=== PATIENT | female | born 1975 | race Caucasian/White ===

== ENCOUNTER 2016-06-03 16:45 | Outpatient (RCR) | payer OTHER | END 2016-06-16 | LOC: M PT 16:45 | PROVIDERS: ATTEND Podiatrist Foot & Ankle Surgery | DX: Z51.89 Encounter for other specified aftercare (principal); M72.2 Plantar fascial fibromatosis ==

== ENCOUNTER → 2016-07-13 | Outpatient (CLI) | payer OTHER ==
--- NOTE | 2016-07-13 13:23 | REP ---
PELVIC ULTRASOUND: Real-time sonographic evaluation of the pelvis performed utilizing transabdominal technique. Bladder measures 12.8 x 7.5 x 10.9 cm. The uterus measures 9.1 x 3.6 x 6.3 cm. Endometrial thickness 13 mm with no endometrial fluid collection. The right ovary measures 2.7 x 1.9 x 2.5 cm and left ovary 4.2 x 3.2 x 3.4 cm. Previously noted complex cyst of the left ovary appears to have resolved. A dominant follicle in the left ovary measures 2.3 cm in diameter. There is blood flow seen in each ovary with duplex Doppler evaluation, RI right ovary 0.62 and left ovary 0.45. No significant free fluid is seen. IMPRESSION: Previously noted complex cyst left ovary has resolved. Dominant follicle left ovary 2.3 cm in maximum diameter. Signed by Esvin Novak MD 07/13/2016 04:59 P
== END ==
LOC: M RAD 12:31
PROVIDERS: ATTEND Obstetrics & Gynecology
DX: R10.814 Left lower quadrant abdominal tenderness (principal); D39.12 Neoplasm of uncertain behavior of left ovary

== ENCOUNTER → 2016-08-01 | Outpatient (REF) | payer OTHER | LOC: M LAB REF 10:43 | PROVIDERS: ATTEND Physician Assistant | DX: J02.9 Acute pharyngitis, unspecified (principal) ==

== ENCOUNTER 2016-10-02 06:22 | Emergency (ER) | payer OTHER ==
[~2016-10-02] VITALS: Ht 165.1 cm; Wt 76.2 kg
[2016-10-02] MEDS ORDERED: IBUP600T26 PO (06:35)
[2016-10-02] MEDS ORDERED: KETOROLAC 60 MG/2 ML VIAL (J1885) IM ONE (07:00)
[2016-10-02] MEDS ORDERED: ULTR50TA PO (07:05)
[2016-10-02] MEDS ORDERED: CYCL10TA PO (07:05)
[2016-10-02 07:36] VITALS: BP 117/63
== END 2016-10-02 07:43 | disposition home or self-care (01) ==
LOC: M ED 07:18
DX: S76.012A Strain of muscle, fascia and tendon of left hip, initial encounter (principal); X50.9XXA Other and unspecified overexertion or strenuous movements or postures, initial encounter; Y92.019 Unspecified place in single-family (private) house as the place of occurrence of the external cause; Y93.H9 Activity, other involving exterior property and land maintenance, building and construction; Y99.9 Unspecified external cause status; G89.29 Other chronic pain; Z87.891 Personal history of nicotine dependence; Z91.040 Latex allergy status
CPT/HCPCS: 96372; 99282; J1885

== ENCOUNTER → 2016-12-11 | Outpatient (REF) ==
[~2016-12-11] MED LIST: CYCL10TA PO; IBUP-1022 PO; ULTR50TA8 PO
--- NOTE | 2016-12-11 10:02 | REPMRS ---
Patient History The patient states she had a clinical breast exam in October 2016.Took hormonal contraceptives for 4 years. Digital Mammo Screening Bilat: December 11, 2016 - Exam #: [id number] Bilateral CC and MLO view(s) were taken. Technologist: Ramona Flood, Technologist Prior study comparison: October 16, 2011, bilateral digital mammo screening bilat performed at [facility]. FINDINGS: There are scattered fibroglandular densities. There has been no change in the appearance of the mammogram from the prior studies. There is a mild amount of residual fibroglandular tissue which is fairly symmetric. There is no interval development of dominant mass, architectural distortion, or clustered microcalcification suggestive of malignancy. ASSESSMENT: BI-RADS/ACR category 1 mammogram. Negative. Recommendation Routine screening mammogram in 1 year (for women over age 40). This mammogram was interpreted with the aid of an FDA-approved computer-aided dectection system. Electronically Signed By: Esvin Novak MD 12/11/16 [id number]
[2016-12-11 10:52] LABS: MEAN CORPUSCULAR HEMOGLOBIN 32.5 pg (27.0-33.0); MEAN CORPUSCULAR HGB CONC 34.5 g/dl (32.0-36.5); RED CELL DISTRIBUTION WIDTH 11.7 % (11.5-14.5); WHITE BLOOD COUNT 8.6 K/mm3 (4.0-10.0)
[2016-12-11 11:17] LABS: ALBUMIN 4.1 GM/DL (3.2-5.2); ALBUMIN/GLOBULIN RATIO 1.37 (1.00-1.93); ALKALINE PHOSPHATASE 62 U/L (45-117); ALT/SGPT 23 U/L (12-78); ANION GAP 7 MEQ/L (8-16); AST/SGOT 16 U/L (15-37); BILIRUBIN,TOTAL 0.4 MG/DL (0.2-1.0); BLOOD UREA NITROGEN 12 MG/DL (7-18); CALCIUM LEVEL 9.2 MG/DL (8.5-10.1); CARBON DIOXIDE LEVEL 30 MEQ/L (21-32); CHLORIDE LEVEL 103 MEQ/L (98-107); CHOLESTEROL LEVEL 148 MG/DL (<200); CREATININE FOR GFR 0.81 MG/DL (0.55-1.02); GLOMERULAR FILTRATION RATE > 60.0 (>58); GLUCOSE, FASTING 90 MG/DL (70-105); POTASSIUM SERUM 4.4 MEQ/L (3.5-5.1); SODIUM LEVEL 140 MEQ/L (136-145); TOTAL PROTEIN 7.1 GM/DL (6.4-8.2); TRIGLYCERIDES LEVEL 64 MG/DL (<150)
== END ==
LOC: M LAB 09:27 → M RAD 09:27 → EDSTATUS 09:30
PROVIDERS: ATTEND Family Medicine
DX: Z00.00 Encounter for general adult medical examination without abnormal findings (principal); Z12.31 Encounter for screening mammogram for malignant neoplasm of breast

== ENCOUNTER → 2017-05-12 | Outpatient (CLI) | payer OTHER | LOC: M LAB 14:02 | DX: Z13.29 Encounter for screening for other suspected endocrine disorder (principal) | CPT/HCPCS: 84443 ==

== ENCOUNTER → 2017-06-24 | Outpatient (REF) | payer OTHER ==
[2017-06-24 15:46] LABS: INFLUENZA A AMPLIFICATION POSITIVE (NEGATIVE); INFLUENZA B AMPLIFICATION POSITIVE (NEGATIVE); RSV AMPLIFICATION NEGATIVE (NEGATIVE)
== END ==
LOC: M LAB REF 14:37
DX: J11.1 Influenza due to unidentified influenza virus with other respiratory manifestations (principal)

== ENCOUNTER → 2017-07-16 | Outpatient (REF) ==
[2017-07-18 14:11] LABS: QUANTIFERON GOLD TB Negative (Negative); TB Test (QFT) Antigen 0.01 IU/mL (.); TB Test (QFT) Antigen Minus Ni <0.01 IU/mL (.); TB Test (QFT) Mitogen >10.00 IU/mL (.); TB Test (QFT) Nil 0.02 IU/mL (.)
== END ==
LOC: M LAB 08:14
DX: Z02.89 Encounter for other administrative examinations (principal)

== ENCOUNTER → 2017-07-16 | Outpatient (REF) ==
[2017-07-16 08:52] LABS: HEMOGLOBIN 13.3 g/dl (12.0-16.0); MEAN CORPUSCULAR HEMOGLOBIN 31.4 pg (27.0-33.0); MEAN CORPUSCULAR HGB CONC 34.1 g/dl (32.0-36.5); PLATELET COUNT, AUTOMATED 241 10^3/uL (150-450); RED BLOOD COUNT 4.24 10^6/uL (4.00-5.40); RED CELL DISTRIBUTION WIDTH 11.9 % (11.5-14.5); WHITE BLOOD COUNT 6.3 10^3/uL (4.0-10.0)
[2017-07-16 09:09] LABS: ANION GAP 5 MEQ/L (8-16); BLOOD UREA NITROGEN 12 MG/DL (7-18); CALCIUM LEVEL 8.3 MG/DL (8.5-10.1); CARBON DIOXIDE LEVEL 28 MEQ/L (21-32); CHLORIDE LEVEL 109 MEQ/L (98-107); CHOLESTEROL LEVEL 157 MG/DL (<200); CHOLESTEROL RISK RATIO 3.204 (<5); CREATININE FOR GFR 0.72 MG/DL (0.55-1.30); GLOMERULAR FILTRATION RATE > 60.0 (>58); GLUCOSE, FASTING 88 MG/DL (70-100); HDL CHOLESTEROL 49 MG/DL (>40); LDL CHOLESTEROL 93.6 MG/DL (<100); NON-HDL-C 108 MG/DL; POTASSIUM SERUM 4.2 MEQ/L (3.5-5.1); SODIUM LEVEL 142 MEQ/L (136-145); TRIGLYCERIDES LEVEL 72 MG/DL (<150)
== END ==
LOC: M LAB 08:17
DX: Z02.89 Encounter for other administrative examinations (principal)

== ENCOUNTER 2017-12-14 16:18 | Emergency (ER) | payer OTHER ==
[2017-12-14] MEDS: ACETAMINOPHEN 325 MG TAB PO (16:50)
[2017-12-14 17:05] LABS: KETONE, URINE AUTO RFX TRACE mg/dL (NEGATIVE); LEUKOCYTE ESTERASE UR AUTO RFX NEGATIVE (NEGATIVE); MUCUS, URINE RFX SMALL (NEGATIVE); NITRITE, URINE AUTO RFX NEGATIVE (NEGATIVE); RBC, URINE AUTO RFX 2 /HPF (0-3); SPECIFIC GRAVITY UR AUTO RFX 1.005 (1.002-1.035); SQUAM EPITHELIAL CELL UR AURFX 0 /HPF (0-6); WBC, URINE AUTO RFX 0 /HPF (0-3)
== END 2017-12-14 17:54 | disposition home or self-care (01) ==
LOC: M ED 16:18
DX: R10.9 Unspecified abdominal pain (principal); Z79.899 Other long term (current) drug therapy; Z91.040 Latex allergy status
CPT/HCPCS: 76775

== ENCOUNTER 2018-02-20 15:27 | Emergency (ER) | payer OTHER ==
[2018-02-20] MEDS: KETOROLAC 60 MG/2 ML VIAL (J1885) IM (16:15)
== END 2018-02-20 16:31 | disposition home or self-care (01) ==
LOC: M ED 15:27
DX: S86.112A Strain of other muscle(s) and tendon(s) of posterior muscle group at lower leg level, left leg, initial encounter (principal); X50.9XXA Other and unspecified overexertion or strenuous movements or postures, initial encounter; Y92.89 Other specified places as the place of occurrence of the external cause; Y93.B9 Activity, other involving muscle strengthening exercises; Z91.040 Latex allergy status
CPT/HCPCS: J1885

== ENCOUNTER → 2018-07-21 | Outpatient (REF) ==
[~2018-07-21] MED LIST changes: +CALC500T36 PO; +CETI10CH PO; +HAIR1CAP2 PO; +KETO10TAB PO; +LIDO1PAD TOP
[2018-07-21 07:26] LABS: HEMATOCRIT 42.2 % (36.0-47.0); HEMOGLOBIN 14.2 g/dl (12.0-15.5); MEAN CORPUSCULAR HGB CONC 33.6 g/dl (32.0-36.5); PLATELET COUNT, AUTOMATED 216 10^3/uL (150-450); RED BLOOD COUNT 4.44 10^6/uL (4.00-5.40); WHITE BLOOD COUNT 7.1 10^3/uL (4.0-10.0)
[2018-07-21 07:53] LABS: BLOOD UREA NITROGEN 12 MG/DL (7-18); CALCIUM LEVEL 8.3 MG/DL (8.5-10.1); CARBON DIOXIDE LEVEL 26 MEQ/L (21-32); CHLORIDE LEVEL 108 MEQ/L (98-107); CHOLESTEROL LEVEL 180 MG/DL (<200); CHOLESTEROL RISK RATIO 2.608 (<5); CREATININE FOR GFR 0.78 MG/DL (0.55-1.30); GLOMERULAR FILTRATION RATE > 60.0 (>58); GLUCOSE, FASTING 90 MG/DL (70-100); HDL CHOLESTEROL 69 MG/DL (>40); LDL CHOLESTEROL 97 MG/DL (<100); NON-HDL-C 111 MG/DL; POTASSIUM SERUM 4.3 MEQ/L (3.5-5.1); SODIUM LEVEL 139 MEQ/L (136-145); TRIGLYCERIDES LEVEL 69 MG/DL (<150)
== END ==
LOC: M LAB 06:47
PROVIDERS: ATTEND Family Medicine
DX: Z00.00 Encounter for general adult medical examination without abnormal findings (principal)

== ENCOUNTER → 2018-11-30 | Outpatient (CLI) | payer OTHER ==
[~2018-11-30] MED LIST changes: -CALC500T36 PO; +CALC500T61 PO
== END ==
LOC: M LAB 07:45
PROVIDERS: ATTEND Internal Medicine Endocrinology, Diabetes & Metabolism
DX: E04.1 Nontoxic single thyroid nodule (principal)

== ENCOUNTER → 2018-12-27 | Outpatient (CLI) | payer OTHER ==
--- NOTE | 2018-12-27 17:36 | REP ---
REASON: Knee pain. COMPARISON: None. FINDINGS: The compartments are symmetric and relatively well maintained. There is no acute fracture or destructive osseous lesion. Electronically Signed by Chidi Carvalho DO 12/28/2018 09:31 A
== END ==
LOC: M RAD 13:34
PROVIDERS: ATTEND Physician Assistant
DX: M25.562 Pain in left knee (principal)

== ENCOUNTER 2019-01-12 07:00 | Outpatient (RCR) | payer OTHER | END 2019-01-14 | LOC: M PT 07:00 | PROVIDERS: ATTEND Physician Assistant | DX: S76.302A Unspecified injury of muscle, fascia and tendon of the posterior muscle group at thigh level, left thigh, initial encounter (principal) | CPT/HCPCS: 97110; 97140; 97161; G0283 ==

== ENCOUNTER → 2019-03-06 | Outpatient (CLI) | payer OTHER ==
--- NOTE | 2019-03-07 07:52 | REP ---
MRI LEFT KNEE: TECHNIQUE: Axial proton density fat saturation, sagittal proton density T2 STIR, water excitation, coronal proton density, proton density fat saturation. Menisci are intact with no evidence of a tear. The cruciate and collateral ligaments are intact. The extensor mechanism is intact. Medial and lateral patellar retinaculum are intact. There is moderate chondromalacia of the medial patellar facet with fissuring of the cartilage down close to the bone and some minor subchondral marrow edema of the medial patellar facet. No other areas of bone marrow edema are seen. There is a mild joint effusion. There is edema in the tendon for the medial head of the gastrocnemius in the medial popliteal fossa with mild surrounding fluid. This has the appearance of a partial tear or strain of this tendon versus moderate tendonitis. IMPRESSION: No evidence of meniscal tear. Cruciate and collateral ligaments are intact. 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 Small joint effusion. Moderate tendonitis versus a strain of tendon of medial head gastrocnemius in the medial popliteal fossa. Electronically Signed by Esvin Novak MD 03/08/2019 11:38 A
== END ==
LOC: M RAD 17:55
PROVIDERS: ATTEND Physician Assistant
DX: M25.562 Pain in left knee (principal); M22.42 Chondromalacia patellae, left knee; M25.462 Effusion, left knee

== ENCOUNTER → 2019-07-24 | Outpatient (CLI) | payer OTHER ==
[2019-07-24 10:40] LABS: BASO # 0.1 10^3/uL (0.0-0.2); BASO % 0.6 % (0.0-1.0); EOS # 0.4 10^3/uL (0.0-0.5); EOS % 3.7 % (0.0-3.0); HEMATOCRIT 42.5 % (36.0-47.0); HEMOGLOBIN 14.4 g/dl (12.0-15.5); LYMPH # 2.3 10^3/uL (1.5-5.0); LYMPH % 22.6 % (24.0-44.0); MEAN CORPUSCULAR HEMOGLOBIN 31.4 pg (27.0-33.0); MEAN CORPUSCULAR HGB CONC 33.9 g/dl (32.0-36.5); MEAN CORPUSCULAR VOLUME 92.8 fl (80.0-96.0); MONO # 0.7 10^3/uL (0.0-0.8); MONO % 6.6 % (0.0-5.0); NEUTROPHILS # 6.8 10^3/uL (1.5-8.5); NEUTROPHILS % 66.2 % (36.0-66.0); PLATELET COUNT, AUTOMATED 265 10^3/uL (150-450); RED BLOOD COUNT 4.58 10^6/uL (4.00-5.40); WHITE BLOOD COUNT 10.2 10^3/uL (4.0-10.0)
[2019-07-24 11:09] LABS: ALBUMIN 4.3 GM/DL (3.2-5.2); ALT/SGPT 26 U/L (12-78); BILIRUBIN,TOTAL 0.6 MG/DL (0.2-1.0); BLOOD UREA NITROGEN 17 MG/DL (7-18); CALCIUM LEVEL 9.1 MG/DL (8.5-10.1); CARBON DIOXIDE LEVEL 27 MEQ/L (21-32); CHLORIDE LEVEL 106 MEQ/L (98-107); CHOLESTEROL LEVEL 186 MG/DL (<200); CHOLESTEROL RISK RATIO 3.049 (<5); CREATININE FOR GFR 0.76 MG/DL (0.55-1.30); FREE T4 0.99 NG/DL (0.76-1.46); GLOMERULAR FILTRATION RATE > 60.0 (>58); GLUCOSE, FASTING 85 MG/DL (70-100); HDL CHOLESTEROL 61 MG/DL (>40); LDL CHOLESTEROL 111 MG/DL (<100); NON-HDL-C 125 MG/DL; POTASSIUM SERUM 4.3 MEQ/L (3.5-5.1); SODIUM LEVEL 139 MEQ/L (136-145); THYROID STIMULATING HORMONE 0.883 uIU/ML (0.358-3.740); TOTAL PROTEIN 7.1 GM/DL (6.4-8.2); TRIGLYCERIDES LEVEL 68 MG/DL (<150)
== END ==
LOC: M LAB 08:56
PROVIDERS: ATTEND Family Medicine
DX: Z13.29 Encounter for screening for other suspected endocrine disorder (principal); Z13.220 Encounter for screening for lipoid disorders; Z13.0 Encounter for screening for diseases of the blood and blood-forming organs and certain disorders involving the immune mechanism

== ENCOUNTER → 2020-04-22 | Outpatient (CLI) | payer SELFPAY ==
[~2020-04-22] MED LIST changes: +CYCL-707 PO; -CYCL10TA PO
== END ==
LOC: M LABSMTC 17:59
PROVIDERS: ATTEND Pediatrics
DX: Z20.828 Contact with and (suspected) exposure to other viral communicable diseases (principal)

== ENCOUNTER 2020-06-19 16:12 | Emergency (ER) | payer OTHER ==
[~2020-06-19] VITALS: Ht 165.1 cm; Wt 77.2 kg
[2020-06-19 18:21] LABS: BASO # 0.1 10^3/uL (0.0-0.2); BASO % 0.7 % (0.0-1.0); EOS # 0.3 10^3/uL (0.0-0.5); EOS % 4.1 % (0.0-3.0); HEMOGLOBIN 12.9 g/dl (12.0-15.5); LYMPH # 3.5 10^3/uL (1.5-5.0); LYMPH % 42.4 % (24.0-44.0); MEAN CORPUSCULAR HEMOGLOBIN 31.4 pg (27.0-33.0); MEAN CORPUSCULAR HGB CONC 33.9 g/dl (32.0-36.5); MEAN CORPUSCULAR VOLUME 92.5 fl (80.0-96.0); MONO # 0.7 10^3/uL (0.0-0.8); MONO % 8.2 % (0.0-5.0); NEUTROPHILS # 3.7 10^3/uL (1.5-8.5); NEUTROPHILS % 44.4 % (36.0-66.0); PLATELET COUNT, AUTOMATED 243 10^3/uL (150-450); RED BLOOD COUNT 4.11 10^6/uL (4.00-5.40); WHITE BLOOD COUNT 8.3 10^3/uL (4.0-10.0)
[2020-06-19 18:50] LABS: ALBUMIN 3.9 GM/DL (3.2-5.2); ALT/SGPT 23 U/L (12-78); BILIRUBIN,DIRECT < 0.1 MG/DL (0.0-0.2); BILIRUBIN,TOTAL 0.3 MG/DL (0.2-1.0); BLOOD UREA NITROGEN 10 MG/DL (7-18); CARBON DIOXIDE LEVEL 27 MEQ/L (21-32); CHLORIDE LEVEL 106 MEQ/L (98-107); CREATININE FOR GFR 0.76 MG/DL (0.55-1.30); FREE T4 0.96 NG/DL (0.76-1.46); GLOMERULAR FILTRATION RATE > 60.0 (>58); GLUCOSE, FASTING 108 MG/DL (70-100); POTASSIUM SERUM 3.9 MEQ/L (3.5-5.1); SODIUM LEVEL 139 MEQ/L (136-145); TOTAL PROTEIN 6.4 GM/DL (6.4-8.2)
[2020-06-19 18:51] LABS: THYROID PEROXIDASE ANTIBODY < 28.0 U/ML (<60.0)
[2020-06-19 19:17] LABS: MONO SCRN NEGATIVE (NEGATIVE)
[2020-06-19 19:25] VITALS: BP 131/75
== END 2020-06-19 19:35 | disposition home or self-care (01) ==
LOC: M ED 16:12
DX: M54.2 Cervicalgia (principal); E03.9 Hypothyroidism, unspecified; E04.9 Nontoxic goiter, unspecified; Z91.040 Latex allergy status

== ENCOUNTER → 2020-06-24 | Outpatient (REF) | payer OTHER | LOC: M LAB REF 17:04 | PROVIDERS: ATTEND Internal Medicine Endocrinology, Diabetes & Metabolism | DX: E04.1 Nontoxic single thyroid nodule (principal) ==

== ENCOUNTER → 2020-06-28 | Outpatient (CLI) | payer OTHER ==
--- NOTE | 2020-06-28 17:49 | REP ---
INDICATION: PAIN IN LT ELBOW. Biceps tendinitis versus ulnar neuritis versus medial epicondylitis. COMPARISON: None. TECHNIQUE: Axial, coronal and sagittal imaging planes are utilized. T1 and T2 weighted scans are included with without fat saturation in the usual fashion. FINDINGS: Cortical and medullary bone signal intensity are normal in the distal humerus, proximal ulna, and proximal radius. There is no evidence of occult bony injury. Medial and lateral collateral ligaments appear intact. There is no evidence of significant joint effusion. Biceps, brachialis, and triceps tendons appear intact distally. There is subtle T2 hyperintensity adjacent to the lateral epicondyle which could reflect mild lateral epicondylitis. No changes of medial epicondylitis are seen. There is some thickening and T2 hyperintensity in the ulnar nerve at the level of the cubital tunnel. I do not see a compressive lesion such is an accessory muscle or bone spur. The T2 hyperintensity could correlate with ulnar neuritis. There is no evidence of skeletal muscle edema or atrophy. The study is otherwise unremarkable. IMPRESSION: 1. No evidence of tendon disruption. 2. Minimal T2 hyperintensity adjacent to the lateral epicondyle. 3. Some thickening and T2 hyperintensity along the course of the ulnar nerve question ulnar neuritis. No compressive lesion seen. <Electronically signed by Shmuel Oleary > 06/28/20 [id number]
== END ==
LOC: M RAD 16:26
PROVIDERS: ATTEND Orthopaedic Surgery
DX: M25.522 Pain in left elbow (principal)

== ENCOUNTER → 2020-07-12 | Outpatient (REF) ==
[2020-07-12 12:30] LABS: CHOLESTEROL RISK RATIO 2.583 (<5)
== END ==
LOC: M LAB 11:02
PROVIDERS: ATTEND Nurse Practitioner Adult Health
DX: Z00.00 Encounter for general adult medical examination without abnormal findings (principal)

== ENCOUNTER → 2020-07-12 | Outpatient (CLI) | payer OTHER | LOC: M LAB 11:04 | PROVIDERS: ATTEND Family Medicine | DX: E04.9 Nontoxic goiter, unspecified (principal); Z13.220 Encounter for screening for lipoid disorders ==

== ENCOUNTER → 2020-12-07 | Outpatient (CLI) | payer OTHER ==
--- NOTE | 2020-12-07 15:58 | REP ---
INDICATION: STRESS FX, LT FOOT. Pain with running on treadmill 4-6 weeks prior. Question stress fracture. COMPARISON: No available comparison radiographs.. TECHNIQUE: Axial, coronal, and sagittal imaging planes utilized. T1 and T2 weighted scans are included with without fat saturation. FINDINGS: Cortical and medullary bone signal intensity are normal. There is no evidence of stress fracture. There is a faint zone of marrow edema in the proximal and of the 4th metatarsal. No periosteal reaction is noted to suggest stress injury at this level. However, adjacent to this in in the proximal intermetatarsal soft tissues is there is a ganglion cyst. This cyst measures 8 x 9 x 11 mm in diameter. It is located in the dorsal soft tissues between the proximal end of the 4th and the proximal end of the 5th metatarsal. No other juxta-articular cyst is seen. No soft tissue mass is appreciated. Patient appears to be status post bunion repair in the distal 1st metatarsal. Plantar fascia is smooth. The visualized portions of the Achilles tendon appear intact. Tibial plafond and talar dome are normal in appearance as visualized. No evidence of tendinopathy or ligament disruption seen. IMPRESSION: No evidence of stress injury. There is a 11 mm ganglion cyst in the intermetatarsal soft tissues between the 4th and 5th proximal metatarsal. Otherwise negative. <Electronically signed by Shmuel Oleary > 12/07/20 [id number]
== END ==
LOC: M RAD 14:46
PROVIDERS: ATTEND Physician Assistant
DX: M84.375D Stress fracture, left foot, subsequent encounter for fracture with routine healing (principal); M67.472 Ganglion, left ankle and foot

== ENCOUNTER → 2021-01-11 | Outpatient (REF) | payer OTHER ==
[2021-01-11 12:20] LABS: APPEARANCE, URINE CLEAR (CLEAR); BACTERIA, URINE AUTO 1+ (NEGATIVE); BILIRUBIN, URINE AUTO NEGATIVE (NEGATIVE); BLOOD, URINE BLOOD NEGATIVE (NEGATIVE); COLOR, URINE YELLOW (YELLOW); GLUCOSE, URINE (UA) AUTO NEGATIVE (NEGATIVE); KETONE, URINE AUTO NEGATIVE (NEGATIVE); LEUKOCYTE ESTERASE, URINE AUTO NEGATIVE (NEGATIVE); NITRITE, URINE AUTO NEGATIVE (NEGATIVE); PROTEIN, URINE AUTO NEGATIVE (NEGATIVE); RBC, URINE AUTO 0 /HPF (0-3); SPECIFIC GRAVITY URINE AUTO 1.009 (1.002-1.035); SQUAMOUS EPITHELIAL CELL UR AU 0 /HPF (0-6); UROBILINOGEN, URINE AUTO 0.2 mg/dL (0.0-2.0); WBC, URINE AUTO 1 /HPF (0-3)
== END ==
LOC: M LAB REF 04:00
PROVIDERS: ATTEND Family Medicine
DX: R82.90 Unspecified abnormal findings in urine (principal)

== ENCOUNTER 2021-04-14 07:55 | Outpatient (RCR) | END 2021-04-14 15:00 | disposition home or self-care (01) | LOC: M EMP 07:55 | PROVIDERS: ATTEND Pediatrics | DX: Z11.52 Encounter for screening for COVID-19 (principal) ==

== ENCOUNTER → 2021-04-21 | Outpatient (REF) | LOC: M LABSMTC 09:44 | PROVIDERS: ATTEND Family Medicine | DX: Z20.822 Contact with and (suspected) exposure to COVID-19 (principal) ==

== ENCOUNTER → 2021-04-25 | Outpatient (REF) | LOC: M LABSMTC 09:54 | PROVIDERS: ATTEND Family Medicine | DX: Z20.828 Contact with and (suspected) exposure to other viral communicable diseases (principal) ==

== ENCOUNTER → 2021-11-03 | Outpatient (CLI) | payer BC ==
[2021-11-03 16:03] LABS: FREE T4 0.93 NG/DL (0.76-1.46); THYROID STIMULATING HORMONE 1.2 uIU/ML (0.358-3.740)
== END ==
LOC: M LAB 14:52
PROVIDERS: ATTEND Obstetrics & Gynecology
DX: N91.4 Secondary oligomenorrhea (principal)

== ENCOUNTER → 2021-11-07 | Outpatient (CLI) | payer BC | LOC: M RAD 08:41 | PROVIDERS: ATTEND Obstetrics & Gynecology | DX: R14.0 Abdominal distension (gaseous) (principal); N83.202 Unspecified ovarian cyst, left side ==

== ENCOUNTER → 2022-03-23 | Outpatient (REF) | payer BC | LOC: M SFHCWAGY 17:12 | PROVIDERS: ATTEND Nurse Practitioner Family | DX: Z12.4 Encounter for screening for malignant neoplasm of cervix (principal) | CPT/HCPCS: 87624; G0123 ==

== ENCOUNTER → 2022-03-30 | Outpatient (REF) ==
[2022-03-30 13:53] LABS: RSV AMPLIFICATION NEGATIVE (NEGATIVE)
== END ==
LOC: M LABSMTC 10:36
PROVIDERS: ATTEND Family Medicine
DX: Z20.828 Contact with and (suspected) exposure to other viral communicable diseases (principal)

== ENCOUNTER → 2022-05-29 | Outpatient (REF) | payer BC | LOC: M LAB REF 16:12 | PROVIDERS: ATTEND Internal Medicine | DX: D64.9 Anemia, unspecified (principal) ==

== ENCOUNTER → 2022-09-04 | Outpatient (CLI) | payer BC ==
[2022-09-04 08:24] LABS: HEMATOCRIT 44.3 % (36.0-47.0); HEMOGLOBIN 14.7 g/dl (12.0-15.5); MEAN CORPUSCULAR HEMOGLOBIN 31.2 pg (27.0-33.0); MEAN CORPUSCULAR HGB CONC 33.2 g/dl (32.0-36.5); MEAN CORPUSCULAR VOLUME 94.1 fl (80.0-96.0); PLATELET COUNT, AUTOMATED 301 10^3/uL (150-450); RED BLOOD COUNT 4.71 10^6/uL (4.00-5.40); WHITE BLOOD COUNT 9.8 10^3/uL (4.0-10.0)
[2022-09-04 08:47] LABS: ALBUMIN 4.3 G/DL (3.2-5.2); ALKALINE PHOSPHATASE 62 U/L (46-116); ALT/SGPT 29 U/L (7.0-40); AST/SGOT 23 U/L (<34); BILIRUBIN,TOTAL 0.4 MG/DL (0.3-1.2); BLOOD UREA NITROGEN 12 MG/DL (9-23); CALCIUM LEVEL 9.4 MG/DL (8.5-10.1); CARBON DIOXIDE LEVEL 29 MMOL/L (20-31); CHLORIDE LEVEL 105 MMOL/L (98-107); CREATININE FOR GFR 0.67 MG/DL (0.55-1.30); GLOMERULAR FILTRATION RATE > 60.0 (>58); GLUCOSE, FASTING 101 MG/DL (60-100); POTASSIUM SERUM 4.2 MMOL/L (3.5-5.1); SODIUM LEVEL 140 MMOL/L (136-145)
== END ==
LOC: M RAD 06:44
PROVIDERS: ATTEND Nurse Practitioner Family
DX: R05.3 Chronic cough (principal)

== ENCOUNTER → 2023-08-06 | Outpatient (CLI) | payer BC | LOC: M PLAIMG 14:08 | PROVIDERS: ATTEND Orthopaedic Surgery | DX: M25.511 Pain in right shoulder (principal) ==

== ENCOUNTER → 2023-08-27 | Outpatient (REF) | payer BC | LOC: M LAB REF 17:26 | PROVIDERS: ATTEND Plastic Surgery Surgery of the Hand | DX: L90.5 Scar conditions and fibrosis of skin (principal) ==

== ENCOUNTER 2023-10-21 04:27 | Emergency (ER) | payer BC ==
[~2023-10-21] VITALS: Ht 167.6 cm; Wt 80.0 kg
[2023-10-21] MEDS: NS 1,000 ML IV ONE (07:50)
[2023-10-21] MEDS: KETOROLAC 30 MG/ML 1ML VIAL IV ONE (07:50)
[2023-10-21 07:52] LABS: HEMATOCRIT 42.9 % (36.0-47.0); HEMOGLOBIN 14.6 g/dl (12.0-15.5); MEAN CORPUSCULAR HEMOGLOBIN 31.9 pg (27.0-33.0); MEAN CORPUSCULAR VOLUME 93.7 fl (80.0-96.0); PLATELET COUNT, AUTOMATED 249 10^3/uL (150-450); RED BLOOD COUNT 4.58 10^6/uL (4.00-5.40); WHITE BLOOD COUNT 8.7 10^3/uL (4.0-10.0)
[2023-10-21 08:21] LABS: BLOOD UREA NITROGEN 15 MG/DL (9-23); CALCIUM LEVEL 8.9 MG/DL (8.5-10.1); CARBON DIOXIDE LEVEL 27 MMOL/L (20-31); CHLORIDE LEVEL 109 MMOL/L (98-107); CREATININE FOR GFR 0.76 MG/DL (0.55-1.30); GLOMERULAR FILTRATION RATE > 60.0 (>58); GLUCOSE, FASTING 99 MG/DL (60-100); POTASSIUM SERUM 4.6 MMOL/L (3.5-5.1); SODIUM LEVEL 140 MMOL/L (136-145)
[2023-10-21] MEDS: METOCLOPRAMIDE INJ 10MG/2ML VIAL IV ONE (09:08)
[2023-10-21] MEDS: diphenhydrAMINE 50MG/ML VIAL IV ONE (09:08)
[2023-10-21] MEDS ORDERED: AMOX875T2 PO (09:13)
[2023-10-21 09:53] VITALS: BP 98/52; TEMP 96.6; O2SAT 98
== END 2023-10-21 09:54 | disposition home or self-care (01) ==
LOC: M ED 04:27
DX: R51.9 Headache, unspecified (principal); H65.02 Acute serous otitis media, left ear; F17.200 Nicotine dependence, unspecified, uncomplicated; Z91.040 Latex allergy status; Z79.2 Long term (current) use of antibiotics
CPT/HCPCS: 70450; 80048; 85027; 96374; 96375; 99283; J1200; J1885; J2765

== ENCOUNTER 2023-12-09 07:47 | Emergency (ER) | payer BC ==
[~2023-12-09] VITALS: Ht 165.1 cm; Wt 86.3 kg
[~2023-12-09 07:47] MED LIST changes: +AMOX875T2 PO
[2023-12-09 09:37] LABS: BASO # 0.1 10^3/uL (0.0-0.2); BASO % 0.8 % (0.0-1.0); EOS # 0.4 10^3/uL (0.0-0.5); EOS % 4.1 % (0.0-3.0); HEMATOCRIT 40.9 % (36.0-47.0); HEMOGLOBIN 13.9 g/dl (12.0-15.5); LYMPH # 2.6 10^3/uL (1.5-5.0); LYMPH % 29.7 % (24.0-44.0); MEAN CORPUSCULAR VOLUME 94.2 fl (80.0-96.0); MONO # 0.6 10^3/uL (0.0-0.8); NEUTROPHILS % 58.2 % (36.0-66.0); PLATELET COUNT, AUTOMATED 243 10^3/uL (150-450); RED BLOOD COUNT 4.34 10^6/uL (4.00-5.40); WHITE BLOOD COUNT 8.6 10^3/uL (4.0-10.0)
[2023-12-09 09:47] LABS: INR 0.98; PARTIAL THROMBOPLASTIN TIME 25.4 SECONDS (24.8-34.2); PROTHROMBIN TIME 12.7 SECONDS (12.5-14.5)
[2023-12-09 10:10] LABS: BLOOD UREA NITROGEN 13 MG/DL (9-23); CALCIUM LEVEL 9.4 MG/DL (8.5-10.1); CARBON DIOXIDE LEVEL 29 MMOL/L (20-31); CHLORIDE LEVEL 106 MMOL/L (98-107); CK-MB VALUE MASS < 1.0 NG/ML (<3.6); CPK CREATINE PHOSPHOKINASE 65 U/L (34-145); CREATININE FOR GFR 0.71 MG/DL (0.55-1.30); GLOMERULAR FILTRATION RATE > 60.0 (>58); GLUCOSE, FASTING 99 MG/DL (60-100); MB/CK RELATIVE INDEX 1.53 (< OR =4); POTASSIUM SERUM 4.2 MMOL/L (3.5-5.1); SODIUM LEVEL 141 MMOL/L (136-145)
[2023-12-09] MEDS: valACYclovir HCL 500 MG TAB PO ONE (10:24)
[2023-12-09] MEDS: predniSONE 20 MG TAB PO ONE (10:24)
[2023-12-09] MEDS: ARTIFICIAL TEARS DROPS 15ML BTL (VISINE DRY RELIEF) OD STA (10:35)
[2023-12-09] MEDS ORDERED: VALT1TAB PO (10:45)
[2023-12-09] MEDS ORDERED: [UNRECOGNIZED DRUG - CODE] OP (10:45)
[2023-12-09] MEDS ORDERED: PRED20TA PO (10:45)
[2023-12-09 10:50] VITALS: BP 119/85; TEMP 97.5; O2SAT 98
[2023-12-13 17:42] LABS: LYME TOTAL ANTIBODY CIA <= 0.90 Index (<=0.90)
== END 2023-12-09 11:10 | disposition home or self-care (01) ==
LOC: M ED 07:47
DX: G51.0 Bell's palsy (principal); E03.9 Hypothyroidism, unspecified; F17.210 Nicotine dependence, cigarettes, uncomplicated; Z91.040 Latex allergy status; Z79.2 Long term (current) use of antibiotics; Z79.52 Long term (current) use of systemic steroids
CPT/HCPCS: 36415; 70450; 80047; 80048; 82550; 82553; 84484; 85025; 85610; 85730; 86618; 93005; 93041; 94760; 99285; J7512

== ENCOUNTER 2024-06-08 15:51 | Emergency (ER) | payer BC ==
[~2024-06-08] VITALS: Ht 167.6 cm; Wt 91.6 kg
[~2024-06-08 15:51] MED LIST changes: +PRED20TA PO; +VALT1TAB PO; +[UNRECOGNIZED DRUG - CODE] OP
[2024-06-08] MEDS ORDERED: PANT40TA29 (15:59)
[2024-06-08] MEDS ORDERED: TIZA4CAP PO (19:30)
[2024-06-08] MEDS: KETOROLAC 30 MG/ML 1ML VIAL IV ONE (19:30)
[2024-06-08 19:40] VITALS: BP 160/90; TEMP 96.7; O2SAT 99
== END 2024-06-08 19:54 | disposition home or self-care (01) ==
LOC: M ED 15:51
DX: M25.551 Pain in right hip (principal); M46.1 Sacroiliitis, not elsewhere classified; E03.9 Hypothyroidism, unspecified; Y92.39 Other specified sports and athletic area as the place of occurrence of the external cause; Y93.01 Activity, walking, marching and hiking; Y99.9 Unspecified external cause status; Z79.899 Other long term (current) drug therapy; Z91.040 Latex allergy status
CPT/HCPCS: 96374; 99283; J1885

== ENCOUNTER → 2024-06-14 | Outpatient (REF) | payer BC ==
[~2024-06-14] MED LIST changes: +PANT40TA29; +TIZA4CAP PO
== END ==
LOC: M SFHCWAGY 17:22
PROVIDERS: ATTEND Nurse Practitioner Family
DX: Z12.4 Encounter for screening for malignant neoplasm of cervix (principal)
CPT/HCPCS: 87624; G0123

== ENCOUNTER → 2024-06-16 | Outpatient (CLI) | payer BC | LOC: M RAD 15:44 | PROVIDERS: ATTEND Internal Medicine | DX: R10.30 Lower abdominal pain, unspecified (principal) ==

== ENCOUNTER → 2024-06-23 | Outpatient (CLI) | payer BC | LOC: M RAD 12:25 | PROVIDERS: ATTEND Internal Medicine | DX: R10.31 Right lower quadrant pain (principal) ==

== ENCOUNTER → 2024-12-20 | Outpatient (CLI) | payer BC | LOC: M RAD 12:12 | PROVIDERS: ATTEND Internal Medicine | DX: M54.2 Cervicalgia (principal) ==

== ENCOUNTER → 2025-01-05 | Outpatient (CLI) | payer BC ==
[~2025-01-05] MED LIST changes: -IBUP-1022 PO; +IBUP600T42 PO
== END ==
LOC: M RAD 10:26
PROVIDERS: ATTEND Physician Assistant
DX: D48.7 Neoplasm of uncertain behavior of other specified sites (principal)

== ENCOUNTER → 2025-03-21 | Outpatient (CLI) | payer BC ==
[2025-03-21 14:47] LABS: RHEUMATOID FACTOR QUANT 3.8 IU/ML (<14)
[2025-03-21 14:50] LABS: VITAMIN B12 LEVEL 472 PG/ML (211-911)
[2025-03-23 12:47] LABS: SSA SJOGRENS A <1.0 NEG AI (<1.0 NEG); SSB SJOGRENS B <1.0 NEG AI (<1.0 NEG)
[2025-03-24 18:27] LABS: VITAMIN E(ALPHA TOCOPHEROL) 15.2 mg/L (5.7-19.9); VITAMIN E(GAMMA TOCOPHEROL) < 1.0 mg/L (<=4.3)
[2025-03-25 17:46] LABS: VITAMIN B6,PYRIDOXAL PHOSPHATE 7.6 ng/mL (2.1-21.7)
[2025-03-26 10:41] LABS: ANTI DS-DNA AB Negative (Negative)
[2025-03-26 16:32] LABS: VITAMIN B1 LEVEL WHOLE BLOOD 119 nmol/L (78-185)
== END ==
LOC: M LAB 12:46
PROVIDERS: ATTEND Psychiatry & Neurology Neurology
DX: R25.1 Tremor, unspecified (principal); E03.9 Hypothyroidism, unspecified; E53.8 Deficiency of other specified B group vitamins; E51.9 Thiamine deficiency, unspecified; E53.1 Pyridoxine deficiency; D17.9 Benign lipomatous neoplasm, unspecified

== ENCOUNTER → 2025-04-03 | Outpatient (CLI) | payer BC | LOC: M LAB 09:15 | PROVIDERS: ATTEND Internal Medicine | DX: E55.9 Vitamin D deficiency, unspecified (principal) ==

== ENCOUNTER → 2025-04-18 | Outpatient (CLI) | payer BC | LOC: M PLAIMG 07:21 | PROVIDERS: ATTEND Internal Medicine | DX: M54.02 Panniculitis affecting regions of neck and back, cervical region (principal) ==